=== PATIENT | female | born 1995 | race African-American/Black ===

== ENCOUNTER 2018-01-18 09:57 | Emergency (ER) | payer OTHER ==
[~2018-01-18] VITALS: Ht 160 cm; Wt 53.0 kg
[2018-01-18] MEDS ORDERED: LEVETIRACETAM 1000MG/100ML 100 ML IV ONE (10:15)
[2018-01-18 12:01] LABS: BASOPHILS % 0.3 % (0.0-2.0); EOSINOPHILS % 0.1 % (0.0-5.0); HEMATOCRIT. 39.6 % (36.0-48.0); HEMOGLOBIN. 13.4 g/dL (12.0-16.0); MEAN CORPUSCULAR VOLUME 85.7 fL (81.0-99.0); MEAN PLATELET VOLUME 9.8 fl (7.4-10.4); MONOCYTES % 6.7 % (2.0-8.0); NEUTROPHILS % 75.9 % (40.0-76.0); PLATELET 199 x1000/uL (130-400); RED BLOOD CELL COUNT 4.62 mill/uL (4.2-5.4); RED CELL DISTRIBUTION WIDTH 14.5 % (11.6-14.6)
[2018-01-18 12:06] LABS: CHLORIDE 105 mEq/L (98-107)
[2018-01-18 12:14] LABS: ETHANOL BLOOD < 10 mg/dL
[2018-01-18 12:33] VITALS: BP 112/71
== END 2018-01-18 12:34 | disposition home or self-care (01) ==
LOC: ER 09:57
DX: R56.9 Unspecified convulsions (principal)
CPT/HCPCS: 36415; 80053; 82962; 85025; 96365; 99284; G0482; J1953